=== PATIENT | female | born 1980 | race Caucasian/White ===

== ENCOUNTER 2020-11-15 22:21 | Emergency (ER) | payer OTHER ==
[~2020-11-15] VITALS: Ht 172.7 cm; Wt 99.8 kg
[2020-11-15] MEDS ORDERED: DESYREL150 MG PO (22:27)
[2020-11-15] MEDS ORDERED: SEROQUEL300 MG PO (22:27)
[2020-11-15] MEDS ORDERED: HYDROXYZINE PAM50 MG PO (22:27)
[2020-11-15] MEDS ORDERED: TORADOL 10 MG T10 MG PO (23:49)
[2020-11-15] MEDS ORDERED: ULTRAM 50MG TAB50 MG PO (23:49)
[2020-11-15] MEDS ORDERED: PENICILLIN V P500 MG PO (23:49)
[2020-11-16 00:19] VITALS: BP 144/69
== END 2020-11-16 00:20 | disposition home or self-care (01) ==
LOC: M.ERS 22:21
DX: K08.89 Other specified disorders of teeth and supporting structures (principal); F12.90 Cannabis use, unspecified, uncomplicated; G43.909 Migraine, unspecified, not intractable, without status migrainosus; Z88.6 Allergy status to analgesic agent; Z88.5 Allergy status to narcotic agent; Z88.1 Allergy status to other antibiotic agents; Z79.899 Other long term (current) drug therapy